=== PATIENT | male | born 1985 | race Caucasian/White ===

== ENCOUNTER 2024-09-22 20:09 | Inpatient (IN) | payer OTHER ==
[2024-09-22 21:04] VITALS: BMI 23.7
[2024-09-22] MEDS ORDERED: IBUPROFEN 400 MG TABLET (FP) PO PRN (22:05)
[2024-09-22] MEDS ORDERED: ACETAMINOPHEN 325 MG TABLET (FP) PO PRN (22:05)
[2024-09-22] MEDS ORDERED: guaiFENesin 600 MG TABLET.ER (FP) PO PRN (22:05)
[2024-09-22] MEDS ORDERED: MAGNESIUM HYDROX 2400MG/30ML ORAL SUSPENSION 30 ML CUP PO PRN (22:05)
[2024-09-22] MEDS ORDERED: MAG HYDROX/AL HYDROX/SIMETH 30 ML UNIT-DOSE CUP PO PRN (22:05)
[2024-09-22] MEDS ORDERED: BENZOCAINE/MENTHOL (CHLORASEPTIC ) LOZENGE MM PRN (22:05)
[2024-09-22] MEDS ORDERED: LOPERAMIDE HCL 2 MG CAPSULE PO PRN (22:05)
[2024-09-22] MEDS ORDERED: IBUPROFEN 600 MG TABLET (FP) PO PRN (22:05)
[2024-09-22] MEDS ORDERED: BENZONATATE 200 MG CAPSULE PO PRN (22:05)
[2024-09-22] MEDS ORDERED: POLYETHYLENE GLYCOL (HEALTHYLAX) 3350 17 GM PACKET PO PRN (22:05)
[2024-09-22] MEDS ORDERED: NALOXONE (NARCAN) HCL 4 MG/0.1 ML SPRAY NS PRN (22:05)
[2024-09-22] MEDS ORDERED: BISMUTH SUBSALICYLATE 524 MG/30 ML PO PRN (22:05)
[2024-09-22] MEDS ORDERED: DICYCLOMINE HCL 10 MG CAPSULE PO PRN (22:05)
[2024-09-22] MEDS: METHOCARBAMOL 500 MG TABLET PO PRN (23:36)
[2024-09-22] MEDS: hydrOXYzine PAMOATE 25 MG CAPSULE (FP) PO PRN (23:36)
[2024-09-23] MEDS: ONDANSETRON *ODT* 4 MG TABLET SL PRN (00:48)
[2024-09-23] MEDS ORDERED: methaDONE HCL 10 MG TABLET (FOR DETOX USE ONLY) PO PRN (03:40)
[2024-09-23] MEDS: methaDONE HCL 10 MG TABLET (FOR DETOX USE ONLY) PO ONE (04:08)
[2024-09-23] MEDS: diazePAM 5 MG TABLET PO SCH (04:09)
[2024-09-23 09:02] LABS: HEMATOCRIT 42.1 % (40.1-51.0); HEMOGLOBIN 13.2 g/dL (13.7-17.5); MCHC 31.4 g/dl (32.3-36.5); MEAN CELL VOLUME 87.3 fl (79.0-92.2); RDW 12.7 % (12.0-15.6)
[2024-09-23 09:05] LABS: CHLORIDE 98 mmol/L (98-107); POTASSIUM 3.3 mmol/L (3.5-5.1); SODIUM 141 mmol/L (136-145)
[2024-09-23 09:14] LABS: CALCIUM 9.5 mg/dL (8.5-10.1)
[2024-09-23 09:15] LABS: ALBUMIN 4.4 g/dl (3.4-5.0); ANION GAP 14 mmol/L (4-13); BLOOD UREA NITROGEN 7.7 mg/dL (7-18); CO2 30 mmol/L (21-32); GLUCOSE,RANDOM 121 mg/dL (74-106)
[2024-09-23 09:18] LABS: CREATININE 0.9 mg/dL (0.55-1.3); SGOT/AST 24 U/L (15-37); SGPT/ALT 21 U/L (13-61)
[2024-09-23 09:20] LABS: BILIRUBIN,TOTAL 0.5 mg/dL (0.2-1)
[2024-09-23 09:21] LABS: ALK PHOS 106 U/L (45-117)
[2024-09-23 09:30] LABS: MEAN PLT VOLUME 13.6 fl (9.4-12.4); PLATELET COUNT 123 x10^3/uL (163-337)
[2024-09-23] MEDS: cloNIDine HCL 0.1 MG TABLET PO PRN (10:09)
[2024-09-23] MEDS: PRENATAL VITAMINS W/ FOLIC ACID TABLET (FP) PO SCH (10:10)
[2024-09-23] MEDS: GABAPENTIN 400 MG CAPSULE PO SCH (10:10)
[2024-09-23] MEDS: diazePAM 5 MG TABLET PO PRN (13:11)
[2024-09-23] MEDS ORDERED: MELATONIN 5 MG TABLETS PO SCH (22:00)
[2024-09-23] MEDS: THIAMINE 100 MG TABLET PO SCH (22:01)
[2024-09-23] MEDS: SUVOREXANT 10 MG TABLET PO PRN (22:03)
[2024-09-24] MEDS: diazePAM 5 MG TABLET PO SCH (06:02)
[2024-09-25] MEDS: diazePAM 5 MG TABLET PO SCH (05:29)
[2024-09-25] MEDS: methaDONE HCL 10 MG TABLET (FOR DETOX USE ONLY) PO ONE (10:51)
[2024-09-26] MEDS: diazePAM 5 MG TABLET PO ONE ×2 (05:46→14:49)
[2024-09-27] MEDS: methaDONE HCL 10 MG TABLET (FOR DETOX USE ONLY) PO ONE (09:45)
[2024-09-27 11:14] LABS: POTASSIUM 3.9 mmol/L (3.5-5.1)
[2024-09-27 11:16] LABS: CALCIUM 8.9 mg/dL (8.5-10.1)
[2024-09-27 11:17] LABS: BLOOD UREA NITROGEN 15.2 mg/dL (7-18)
[2024-09-27 11:20] LABS: CREATININE 0.9 mg/dL (0.55-1.3)
[2024-09-27 22:11] VITALS: RESP 16
[2024-09-28 08:51] VITALS: BP 127/92; PULSE 80; TEMP 97.7
== END 2024-09-28 09:39 | disposition home or self-care (01) | DRG 773 ==
LOC: YASAS 20:09 → Y6N 22:34
PROVIDERS: ADMIT Neuromusculoskeletal Medicine & OMM; ATTEND Allergy & Immunology
PROC: HZ2ZZZZ Detoxification Services for Substance Abuse Treatment (ICD-10-PCS; principal; 2024-09-22)
DX: F11.23 Opioid dependence with withdrawal (principal); F10.230 Alcohol dependence with withdrawal, uncomplicated; F13.230 Sedative, hypnotic or anxiolytic dependence with withdrawal, uncomplicated; F19.282 Other psychoactive substance dependence with psychoactive substance-induced sleep disorder; F19.280 Other psychoactive substance dependence with psychoactive substance-induced anxiety disorder; F19.24 Other psychoactive substance dependence with psychoactive substance-induced mood disorder; F41.9 Anxiety disorder, unspecified; F32.A Depression, unspecified; E87.6 Hypokalemia; N32.89 Other specified disorders of bladder; Z87.891 Personal history of nicotine dependence; Z86.19 Personal history of other infectious and parasitic diseases; Z88.8 Allergy status to other drugs, medicaments and biological substances
CPT/HCPCS: 36415; 80048; 80053; 80305; 80307; 85027; 86780; 93005; 93010; Q0162